=== PATIENT | male | born 1990 | race Caucasian/White ===

== ENCOUNTER 2017-07-01 17:45 | Emergency (ER) | payer SELFPAY ==
[~2017-07-01] VITALS: Ht 172.7 cm; Wt 88.2 kg
[2017-07-01 18:33] VITALS: BP 148/88
--- NOTE | 2017-07-01 18:37 | NUR ---
PT AMBULATES BACK TO THE LOBBY
[2017-07-01 19:04] LABS: APPEARANCE,URINE SL CLOUDY (CLEAR); BILIRUBIN,URINE 1+ (NEGATIVE); BLOOD, URINE 2+ (NEGATIVE); COLOR,URINE YELLOW (YELLOW); LEUKOCYTE ESTERASE ,URINE 3+ (NEGATIVE); NITRITE, URINE NEGATIVE (NEGATIVE); PH,URINE 5.5 (5.0-9.0); UGLUCOSE NEGATIVE (NEGATIVE)
[2017-07-01 20:44] LABS: RBC,URINE 0-5 (RARE) /HPF (0-5); WBC,URINE TOO MANY TO COUNT /HPF (0-5)
--- NOTE | 2017-07-01 22:41 | NUR ---
PATIENT LEFT WITHOUT BEING SEEN BY DR. CATES. NO FURTHER CARE PROVIDED FOR PATIENT.
[2017-07-04 06:12] LABS: CHLAMYDIA TRACHOMATIS AMP DNA Negative (Negative)
== END 2017-07-01 22:41 | disposition left against medical advice (07) ==
LOC: MED 17:45
DX: R30.9 Painful micturition, unspecified (principal); Z53.21 Procedure and treatment not carried out due to patient leaving prior to being seen by health care provider
CPT/HCPCS: 36415; 81001; 87086; 87491; 99281